=== PATIENT | female | born 1995 | race Hispanic/Latino ===

== ENCOUNTER 2019-09-09 21:30 | Emergency (ER) | payer OTHER, SELFPAY ==
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
--- NOTE | 2019-09-09 22:01 | EDPHYS ---
Physician Documentation [facility] Name: Monica Sam Age: 24 yrs Sex: Female : 1995 Arrival Date: 09/09/2019 Time: 21:33 Bed 8 Private MD: ED Physician Isaac Moore HPI: 09/10 06:46 This 24 yrs old Female presents to ER via EMS with complaints of syncope. tw4 06:46 The patient has experienced near-syncope. The patient has experienced near-syncope, tw4 felt faint. Onset: The symptoms/episode began/occurred just prior to arrival. Duration: This was a single episode, that lasted an unknown period of time. Context: the episode(s) was witnessed, by family, occurred at home, occurred while the patient was arguing. Associated injury: The patient did not suffer any apparent associated injury. Associated signs and symptoms: The patient has no apparent associated signs or symptoms. Current symptoms: Currently, the patient is not experiencing any symptoms. The patient has not experienced similar symptoms in the past. 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 - Social history:: Smoking status: Patient/guardian denies using tobacco, Patient/guardian denies using alcohol, street drugs. - Ebola Screening: : No symptoms or risks identified at this time. ROS: 09/10 06:46 Constitutional: Negative for fever, chills, and weight loss, Eyes: Negative for injury, tw4 pain, redness, and discharge. Cardiovascular: Negative for chest pain, palpitations, and edema, Respiratory: Negative for shortness of breath, cough, wheezing, and pleuritic chest pain, Abdomen/GI: Negative for abdominal pain, nausea, vomiting, diarrhea, and constipation, Back: Negative for injury and pain, MS/Extremity: Negative for injury and deformity, Skin: Negative for injury, rash, and discoloration. Neuro: Positive for syncope, near syncope. Psych: Positive for anxiety. Exam: 06:46 Abdomen/GI: Exam negative for tw4 06:46 Constitutional: This is a well developed, well nourished patient who is awake, alert, and in no acute distress. Head/Face: Normocephalic, atraumatic. Chest/axilla: Normal chest wall appearance and motion. Nontender with no deformity. No lesions are appreciated. Cardiovascular: Regular rate and rhythm with a normal S1 and S2. No gallops, murmurs, or rubs. Normal PMI, no JVD. No pulse deficits. Respiratory: Lungs have equal breath sounds bilaterally, clear to auscultation and percussion. No rales, rhonchi or wheezes noted. No increased work of breathing, no retractions or nasal flaring. Abdomen/GI: Soft, non-tender, with normal bowel sounds. No distension or tympany. No guarding or rebound. No evidence of tenderness throughout. Back: No spinal tenderness. No costovertebral tenderness. Full range of motion. MS/ Extremity: Pulses equal, no cyanosis. Neurovascular intact. Full, normal range of motion. Neuro: Awake and alert, GCS 15, oriented to person, place, time, and situation. Cranial nerves II-XII grossly intact. Motor strength 5/5 in all extremities. Sensory grossly intact. Cerebellar exam normal. Normal gait. Vital Signs: 09/09 21:41 BP 110 / 77; Pulse 71; Resp 18; Temp 98.7; Pulse Ox 99% on R/A; Weight 61.23 kg (R); ak1 Height 5 ft. 4 in. (162.56 cm) (R); Pain 2/10; 22:07 BP 115 / 86; Pulse 76; Resp 19; Pulse Ox 100% on R/A; ak1 21:41 Body Mass Index 23.17 (61.23 kg, 162.56 cm) ak1 MDM: 21:34 Patient medically screened. tw4 09/10 06:47 Differential Diagnosis: cardiac arrhythmia, drug effect, emotional response, idiopathic tw4 syncope, , pseudo seizure, seizure, vasovagal episode. Data reviewed: vital signs, nurses notes. Data reviewed: EKG. Data interpreted: Pulse oximetry: Interpretation: normal. Test interpretation: by ED physician or midlevel provider: ECG. Counseling: I had a detailed discussion with the patient and/or guardian regarding: the historical points, exam findings, and any diagnostic results supporting the discharge/admit diagnosis. Refusal of service: The patient/guardian displays adequate decision making capability and despite a detailed discussion of alternatives, benefits, risks, and consequences refuses: all lab tests. 09/09 21:36 Order name: EKG; Complete Time: 21:37 tw4 09/09 21:36 Order name: Cardiac monitoring; Complete Time: 21:41 tw4 09/09 21:36 Order name: EKG - Nurse/Tech; Complete Time: 21:41 tw4 09/09 21:36 Order name: O2 Per Protocol; Complete Time: 21:41 tw4 09/09 21:36 Order name: O2 Sat Monitoring; Complete Time: 21:41 tw4 EC/27 22:01 Rate is 62 beats/min. Rhythm is regular. QRS [place] is Normal. DC interval is normal. QRS tw4 interval is normal. QT interval is normal. No Q waves. T waves are Normal. No ST changes noted. Clinical impression: Normal ECG. Interpreted by me. Reviewed by me. Administered Medications: No medications were administered Disposition: 09/09/19 22:00 Patient has left against medical advice. Impression: Anxiety disorder, unspecified, Syncope and collapse. - Patients states they are going to Home. - Condition is Stable. - Discharge Instructions: Syncope, Panic Attacks, [id number], Generalized Anxiety Disorder. SBAR form, Thank You Letter form. Follow up: Private Physician; When: Upon discharge from the Emergency Department; Reason: Recheck today's complaints, Continuance of care. - Problem is new. - Symptoms have improved. Signatures: Dispatcher [employer] EDBeatriz Bernstein RN RN ak1 Isaac Moore MD MD tw4 Corrections: (The following items were deleted from the chart) 21:41 21:33 IV Saline Lock ordered. tw4 ak1 21:41 21:33 Labs collected and sent ordered. tw4 ak1 22:28 22:00 09/09/2019 22:00 Patients has left against medical advice. Impression: Anxiety ak1 disorder, unspecified; Syncope and collapse. Patient states they are going to Home. Condition is Stable. Follow up: Private Physician; When: Upon discharge from the Emergency Department; Reason: Recheck today's complaints, Continuance of care. Problem is new. Symptoms have improved. tw4
[2019-09-09 23:15] VITALS: TEMP 98.7
[2019-09-09 23:17] VITALS: BP 115/86; O2SAT 100
--- NOTE | 2019-09-10 09:27 | EKG ---
Test Date: 2019-09-09 Test Time: 21:42:56 [employer] Source Operations Officer: DAVID MEASUREMENT RESULTS: Intervals: Rate: 62 AK: 158 QRSD: 76 QT: 406 QTc: 412 Alex: P: 50 AK: 158 QRS: 76 T: 56 INTERPRETIVE STATEMENTS: Normal sinus rhythm Normal ECG No previous ECG available for comparison Electronically Signed On 09-10-19 09:27:18 DIAMOND CLEAVER by Michael Page
== END 2019-09-09 22:28 | disposition left against medical advice (07) ==
LOC: ER 21:30
DX: R55 Syncope and collapse (principal); F41.9 Anxiety disorder, unspecified
CPT/HCPCS: 93005; 99284